=== PATIENT | male | born 1970 | race Hispanic/Latino ===

== ENCOUNTER 2021-09-24 23:11 | Inpatient (IN) | payer OTHER ==
[~2021-09-24] VITALS: Ht 175.3 cm; Wt 93.3 kg
[2021-09-25] MEDS ORDERED: ACETAMINOPHEN 325 MG TAB PO PRN ×2 (00:45→08:30)
[2021-09-25 00:53] LABS: BASOPHILS % 0.4 % (0.0-1.0); EOSINOPHILS # (AUTO) 0.1 (0.0-0.4); EOSINOPHILS % 1.3 % (0.0-6.0); HEMATOCRIT 40.3 % (38.2-49.6); HEMOGLOBIN 14.5 g/dL (14.0-18.0); LYMPHOCYTES # (AUTO) 1.6 (1.0-3.2); LYMPHOCYTES % 15.5 % (18.0-39.1); MEAN CORPUSCULAR HEMOGLOBIN 31.9 pg (28-32); MEAN CORPUSCULAR VOLUME 88.6 fL (81-99); MONOCYTES # (AUTO) 0.7 (0.2-0.8); MONOCYTES % 6.5 % (4.4-11.3); NEUTROPHILS # (AUTO) 7.7 (2.1-6.9); NEUTROPHILS % 76.1 % (38.7-80.0); PLATELET COUNT 256 x10e3/uL (140-360); RED BLOOD COUNT 4.55 x10e6/uL (4.3-5.7); RED CELL DISTRIBUTION WIDTH 11.8 % (11.7-14.4)
[2021-09-25 01:02] LABS: INR 1.07; PROTHROMBIN TIME 14.9 seconds (11.9-14.5)
[2021-09-25 01:03] LABS: PARTIAL THROMBOPLASTIN TIME 29.7 seconds (23.8-35.5)
[2021-09-25 01:10] LABS: ALBUMIN 3.1 g/dL (3.5-5.0); ALBUMIN/GLOBULIN RATIO 0.7 (0.8-2.0); ANION GAP 14.9 mmol/L (8-16); CALCIUM 8.8 mg/dL (8.4-10.2); CREATININE, SERUM 1.01 mg/dL (0.72-1.25); POTASSIUM 3.9 mmol/L (3.5-5.1)
[2021-09-25] MEDS: Vancomycin IV 1 GM in SODIUM CHLORIDE 0.9% 250ML 250 ML IV SCH ×2 (02:04→12:30)
[2021-09-25] MEDS ORDERED: DEXTROSE 50% SYRINGE 50 ML IV PRN ×2 (02:30→08:30)
[2021-09-25] MEDS: SODIUM CHLORIDE 0.9% 1000ML 1,000 ML IV SCH ×3 (06:05→18:17)
[2021-09-25] MEDS ORDERED: HYDRALAZINE HCL 20 MG/ML VIAL IV PRN (08:30)
[2021-09-25] MEDS: DOCUSATE SODIUM 100 MG CAP PO SCH (09:00)
[2021-09-25] MEDS: SENNOSIDES 8.6 MG TAB PO SCH (09:00)
[2021-09-25 10:49] LABS: CLARITY,URINE CLEAR (CLEAR); COLOR,URINE YELLOW (YELLOW)
[2021-09-25 10:50] LABS: BACTERIA,URINE RARE /HPF; KETONES,URINE 1+ (NEGATIVE); LEUKOCYTE ESTERASE ,URINE NEGATIVE (NEGATIVE); NITRITE,URINE NEGATIVE (NEGATIVE); PROTEIN,URINE DIPSTICK NEGATIVE (NEGATIVE); RBC,URINE 0-5 /HPF (0-5); URINE UROBILINOGEN 1 mg/dL (0.2 - 1); WBC,URINE (MAN) 0-5 /HPF (0-5)
[2021-09-25 10:51] LABS: EPITHELIAL CELLS,URINE RARE /LPF
[2021-09-25] MEDS: ONDANSETRON HCL INJ 2MG/ML 2ML 2 MG/ML VIAL IV PRN ×2 (11:35→16:37)
[2021-09-25] MEDS: Morphine 4mg INJECTION 4 MG/ML INJ IV PRN ×3 (11:35→20:46)
[2021-09-25] MEDS: INSULIN LISPRO 100 UNIT/1 ML 3ML VIAL SQ SCH ×3 (11:35→20:50)
[2021-09-25 15:30] VITALS: BP 142/90
[2021-09-25 16:25] VITALS: BP 142/90
[2021-09-25] MEDS ORDERED: METFORMIN500 MG/5 M (17:07)
[2021-09-25] MEDS ORDERED: LISINOPRIL5 MG PO (17:07)
[2021-09-25] MEDS: ENOXAPARIN SOD INJ 40 MG/0.4 ML SYR SC SCH (17:43)
[2021-09-25 18:32] VITALS: BP 142/90
[2021-09-25 19:30] VITALS: BP 129/80
[2021-09-25 20:00] VITALS: BP 129/80
[2021-09-26] VITALS (8 sets, daily range): BP systolic 120–146; BP diastolic 67–95
[2021-09-26] MEDS: Vancomycin IV 1 GM in SODIUM CHLORIDE 0.9% 250ML 250 ML IV SCH ×2 (00:30→11:29)
[2021-09-26] MEDS: Morphine 4mg INJECTION 4 MG/ML INJ IV PRN ×5 (00:30→23:41)
[2021-09-26] MEDS: SODIUM CHLORIDE 0.9% 1000ML 1,000 ML IV SCH ×3 (00:30→18:44)
[2021-09-26 06:02] LABS: BASOPHILS % 0.4 % (0.0-1.0); EOSINOPHILS # (AUTO) 0.3 (0.0-0.4); EOSINOPHILS % 2.5 % (0.0-6.0); HEMATOCRIT 34.6 % (38.2-49.6); HEMOGLOBIN 12.3 g/dL (14.0-18.0); LYMPHOCYTES # (AUTO) 2.3 (1.0-3.2); LYMPHOCYTES % 22.2 % (18.0-39.1); MEAN CORPUSCULAR HEMOGLOBIN 31.8 pg (28-32); MEAN CORPUSCULAR HGB CONC 35.5 g/dL (31-35); MEAN CORPUSCULAR VOLUME 89.4 fL (81-99); MONOCYTES # (AUTO) 0.7 (0.2-0.8); MONOCYTES % 6.6 % (4.4-11.3); NEUTROPHILS % 67.8 % (38.7-80.0); PLATELET COUNT 228 x10e3/uL (140-360); RED BLOOD COUNT 3.87 x10e6/uL (4.3-5.7); RED CELL DISTRIBUTION WIDTH 11.7 % (11.7-14.4)
[2021-09-26 06:35] LABS: ANION GAP 12.8 mmol/L (8-16); CREATININE, SERUM 0.84 mg/dL (0.72-1.25); POTASSIUM 3.8 mmol/L (3.5-5.1)
[2021-09-26] MEDS: INSULIN LISPRO 100 UNIT/1 ML 3ML VIAL SQ SCH ×4 (07:30→21:41)
[2021-09-26] MEDS: DOCUSATE SODIUM 100 MG CAP PO SCH (09:24)
[2021-09-26] MEDS: SENNOSIDES 8.6 MG TAB PO SCH (09:24)
[2021-09-26] MEDS: ONDANSETRON HCL INJ 2MG/ML 2ML 2 MG/ML VIAL IV PRN ×2 (09:24→15:00)
[2021-09-26] MEDS ORDERED: DEXTROSE 50% SYRINGE 50 ML IV PRN ×2 (16:45)
[2021-09-26] MEDS: ENOXAPARIN SOD INJ 40 MG/0.4 ML SYR SC SCH (18:44)
[2021-09-26] MEDS ORDERED: INSULIN REGULAR, HUMAN 100 UNIT/1 ML SQ SCH (21:00)
[2021-09-27] VITALS (7 sets, daily range): BP systolic 117–162; BP diastolic 77–98
[2021-09-27] MEDS: Vancomycin IV 1 GM in SODIUM CHLORIDE 0.9% 250ML 250 ML IV SCH ×2 (00:25→13:21)
[2021-09-27] MEDS: SODIUM CHLORIDE 0.9% 1000ML 1,000 ML IV SCH ×3 (02:11→18:05)
[2021-09-27] MEDS: Morphine 4mg INJECTION 4 MG/ML INJ IV PRN ×3 (09:43→21:24)
[2021-09-27] MEDS: DOCUSATE SODIUM 100 MG CAP PO SCH (09:44)
[2021-09-27] MEDS: SENNOSIDES 8.6 MG TAB PO SCH (09:44)
[2021-09-27] MEDS: INSULIN LISPRO 100 UNIT/1 ML 3ML VIAL SQ SCH ×4 (09:49→21:00)
[2021-09-27] MEDS: ENOXAPARIN SOD INJ 40 MG/0.4 ML SYR SC SCH (18:01)
[2021-09-28] VITALS (7 sets, daily range): BP systolic 126–164; BP diastolic 80–101
[2021-09-28] MEDS ORDERED: SODIUM CHLORIDE 0.9% 250ML 250 ML ONE (01:31)
[2021-09-28] MEDS ORDERED: Vancomycin IV 1.5 GM in SODIUM CHLORIDE 0.9% 500ML 500 ML IV SCH (02:00)
[2021-09-28] MEDS: SODIUM CHLORIDE 0.9% 1000ML 1,000 ML IV SCH ×3 (04:07→17:29)
[2021-09-28] MEDS: Morphine 4mg INJECTION 4 MG/ML INJ IV PRN ×4 (07:46→23:12)
[2021-09-28] MEDS ORDERED: HYDRALAZINE HCL 20 MG/ML VIAL IV PRN (08:15)
[2021-09-28 08:56] LABS: BASOPHILS % 0.4 % (0.0-1.0); EOSINOPHILS # (AUTO) 0.2 (0.0-0.4); EOSINOPHILS % 2.2 % (0.0-6.0); HEMATOCRIT 36.6 % (38.2-49.6); HEMOGLOBIN 13.1 g/dL (14.0-18.0); LYMPHOCYTES # (AUTO) 1.5 (1.0-3.2); LYMPHOCYTES % 19.6 % (18.0-39.1); MEAN CORPUSCULAR HEMOGLOBIN 31.6 pg (28-32); MEAN CORPUSCULAR HGB CONC 35.8 g/dL (31-35); MEAN CORPUSCULAR VOLUME 88.4 fL (81-99); MONOCYTES # (AUTO) 0.5 (0.2-0.8); MONOCYTES % 6.4 % (4.4-11.3); NEUTROPHILS # (AUTO) 5.4 (2.1-6.9); NEUTROPHILS % 71.1 % (38.7-80.0); PLATELET COUNT 251 x10e3/uL (140-360); RED BLOOD COUNT 4.14 x10e6/uL (4.3-5.7); RED CELL DISTRIBUTION WIDTH 11.6 % (11.7-14.4)
[2021-09-28] MEDS: SENNOSIDES 8.6 MG TAB PO SCH ×2 (09:00→09:30)
[2021-09-28] MEDS: DOCUSATE SODIUM 100 MG CAP PO SCH ×2 (09:00→09:31)
[2021-09-28 09:05] LABS: ALBUMIN 2.7 g/dL (3.5-5.0); ALBUMIN/GLOBULIN RATIO 0.9 (0.8-2.0); ANION GAP 14.9 mmol/L (8-16); CALCIUM 7.5 mg/dL (8.4-10.2); CREATININE, SERUM 0.79 mg/dL (0.72-1.25); POTASSIUM 3.9 mmol/L (3.5-5.1)
[2021-09-28] MEDS: LISINOPRIL 2.5 MG TAB PO SCH (09:29)
[2021-09-28] MEDS: INSULIN LISPRO 100 UNIT/1 ML 3ML VIAL SQ SCH ×5 (09:40→21:00)
[2021-09-28] MEDS ORDERED: LIDOCAINE HCL 1% LOCAL INJ 20 ML VIAL INJ ONE (10:30)
[2021-09-28] MEDS ORDERED: BUPIVACAINE HCL 0.5% INJ 30 ML VIAL INJ ONE (10:45)
[2021-09-28] MEDS ORDERED: BETAMETHASONE DISODIUM PHOS 6 MG/ML VIAL IM ONE (11:30)
[2021-09-28] MEDS ORDERED: INSULIN LISPRO 100 UNIT/1 ML 3ML VIAL SQ SCH (11:30)
[2021-09-28] MEDS: VANCOMYCIN IV SCH (14:00)
[2021-09-28] MEDS: SODIUM CHLORIDE 0.9% IV SCH (14:00)
[2021-09-28] MEDS: ENOXAPARIN SOD INJ 40 MG/0.4 ML SYR SC SCH (16:43)
[2021-09-28] MEDS: METFORMIN HCL 500 MG TAB CR PO SCH (16:43)
[2021-09-28] MEDS ORDERED: DIPHENHYDRAMINE HCL 25 MG CAP PO ONE (17:00)
[2021-09-28] MEDS ORDERED: INSULIN GLARGINE 100 UNITS/ML VIAL SQ SCH ×2 (21:00)
[2021-09-28] MEDS: ATORVASTATIN 10 MG TAB PO SCH (21:14)
[2021-09-28] MEDS: ONDANSETRON HCL INJ 2MG/ML 2ML 2 MG/ML VIAL IV PRN (23:12)
[2021-09-29] VITALS (7 sets, daily range): BP systolic 123–157; BP diastolic 82–100
[2021-09-29] MEDS: SODIUM CHLORIDE 0.9% IV SCH ×2 (01:41→14:54)
[2021-09-29] MEDS: SODIUM CHLORIDE 0.9% 1000ML 1,000 ML IV SCH ×3 (01:41→19:15)
[2021-09-29] MEDS: VANCOMYCIN IV SCH ×2 (01:41→14:54)
[2021-09-29 05:51] LABS: BASOPHILS % 0.4 % (0.0-1.0); EOSINOPHILS # (AUTO) 0.3 (0.0-0.4); EOSINOPHILS % 3.1 % (0.0-6.0); HEMOGLOBIN 13.1 g/dL (14.0-18.0); LYMPHOCYTES # (AUTO) 1.9 (1.0-3.2); LYMPHOCYTES % 21.2 % (18.0-39.1); MEAN CORPUSCULAR HEMOGLOBIN 31.6 pg (28-32); MEAN CORPUSCULAR HGB CONC 35.4 g/dL (31-35); MEAN CORPUSCULAR VOLUME 89.2 fL (81-99); MONOCYTES # (AUTO) 0.7 (0.2-0.8); MONOCYTES % 7.5 % (4.4-11.3); NEUTROPHILS # (AUTO) 6.2 (2.1-6.9); NEUTROPHILS % 67.5 % (38.7-80.0); PLATELET COUNT 294 x10e3/uL (140-360); RED BLOOD COUNT 4.15 x10e6/uL (4.3-5.7); RED CELL DISTRIBUTION WIDTH 11.7 % (11.7-14.4)
[2021-09-29 06:27] LABS: ALBUMIN 2.5 g/dL (3.5-5.0); ALBUMIN/GLOBULIN RATIO 0.7 (0.8-2.0); ANION GAP 13.6 mmol/L (8-16); CREATININE, SERUM 0.9 mg/dL (0.72-1.25); MAGNESIUM 1.7 MG/DL (1.3-2.1); POTASSIUM 3.6 mmol/L (3.5-5.1)
[2021-09-29] MEDS: INSULIN LISPRO 100 UNIT/1 ML 3ML VIAL SQ SCH ×9 (07:30→21:29)
[2021-09-29] MEDS ORDERED: BACITRACIN ZINC 15 GM OINT ONE (07:40)
[2021-09-29] MEDS ORDERED: DEXAMETHASONE SOD PHOS INJ 4 MG/ML SDV ONE ×2 (07:40→07:55)
[2021-09-29] MEDS ORDERED: BUPIVACAINE 0.25% 30ML SDV ONE (07:41)
[2021-09-29] MEDS ORDERED: LIDOCAINE HCL 2% LOCAL 20 ML VIAL ONE (07:43)
[2021-09-29] MEDS ORDERED: BETAMETHASONE DISODIUM PHOS 6 MG/ML VIAL ONE (07:44)
[2021-09-29] MEDS ORDERED: POVIDONE IODINE 0.05% 0.05 % ML PO ONE (07:55)
[2021-09-29] MEDS ORDERED: LIDOCAINE HCL 2% LOCAL INJ 5 ML SDV VIAL INJ ONE (07:55)
[2021-09-29] MEDS ORDERED: SEVOFLURANE INHAL SOLN 250 ML PEN BTL ONE (07:55)
[2021-09-29] MEDS ORDERED: EPHEDRINE SULFATE INJ 50 MG/ML VIAL ONE (07:55)
[2021-09-29] MEDS ORDERED: PROPOFOL IV EMULSION 10 MG/ML 20 ML VIAL ONE (07:55)
[2021-09-29] MEDS ORDERED: ONDANSETRON HCL INJ 2MG/ML 2ML 2 MG/ML VIAL ONE (07:55)
[2021-09-29] MEDS ORDERED: Vancomycin IV 1 GM VIAL ONE (07:57)
[2021-09-29] MEDS: METFORMIN HCL 500 MG TAB CR PO SCH ×3 (08:00→16:28)
[2021-09-29] MEDS: SENNOSIDES 8.6 MG TAB PO SCH (09:27)
[2021-09-29] MEDS: DOCUSATE SODIUM 100 MG CAP PO SCH (09:27)
[2021-09-29] MEDS: LISINOPRIL 2.5 MG TAB PO SCH (09:28)
[2021-09-29] MEDS ORDERED: MIDAZOLAM HCL 2 MG/2 ML VIAL ONE (09:58)
[2021-09-29] MEDS ORDERED: FENTANYL CITRATE/PF 100MCG/2 ML INJ ONE (09:58)
[2021-09-29] MEDS: Morphine 4mg INJECTION 4 MG/ML INJ IV PRN ×3 (10:55→21:39)
[2021-09-29] MEDS: ONDANSETRON HCL INJ 2MG/ML 2ML 2 MG/ML VIAL IV PRN ×2 (10:55→16:35)
[2021-09-29] MEDS: ENOXAPARIN SOD INJ 40 MG/0.4 ML SYR SC SCH (16:29)
[2021-09-29] MEDS: ATORVASTATIN 10 MG TAB PO SCH (20:17)
[2021-09-29] MEDS ORDERED: INSULIN GLARGINE 100 UNITS/ML VIAL SQ SCH (21:00)
[2021-09-29] MEDS: INSULIN GLARGINE 100 UNITS/ML VIAL SQ SCH (21:30)
[2021-09-30] VITALS (9 sets, daily range): BP systolic 99–150; BP diastolic 59–97
[2021-09-30] MEDS: VANCOMYCIN IV SCH ×2 (02:28→14:34)
[2021-09-30] MEDS: SODIUM CHLORIDE 0.9% IV SCH ×2 (02:28→14:34)
[2021-09-30] MEDS: SODIUM CHLORIDE 0.9% 1000ML 1,000 ML IV SCH ×3 (05:25→20:13)
[2021-09-30] MEDS: Morphine 4mg INJECTION 4 MG/ML INJ IV PRN ×3 (06:49→22:22)
[2021-09-30] MEDS: SENNOSIDES 8.6 MG TAB PO SCH (09:18)
[2021-09-30] MEDS: LISINOPRIL 2.5 MG TAB PO SCH (09:18)
[2021-09-30] MEDS: DOCUSATE SODIUM 100 MG CAP PO SCH (09:19)
[2021-09-30] MEDS: METFORMIN HCL 500 MG TAB CR PO SCH ×2 (09:19→16:07)
[2021-09-30] MEDS: INSULIN LISPRO 100 UNIT/1 ML 3ML VIAL SQ SCH ×5 (09:31→16:08)
[2021-09-30] MEDS ORDERED: LEVEMIR FL100 UNIT/1 SC (12:15)
[2021-09-30] MEDS ORDERED: BLOOD GLUCOSE1 EAC1 MC (12:15)
[2021-09-30] MEDS ORDERED: LANCETS1 EACH MC (12:15)
[2021-09-30] MEDS ORDERED: HUMALOG100 UNIT/3 SC (12:15)
[2021-09-30] MEDS: COLLAGENASE 5 GM TUBE TOP SCH (12:42)
[2021-09-30] MEDS ORDERED: LIDOCAINE HCL 1% LOCAL INJ 20 ML VIAL INJ ONE (13:00)
[2021-09-30] MEDS ORDERED: BUPIVACAINE HCL 0.25% 10ML MPF VIAL INJ ONE (13:00)
[2021-09-30] MEDS ORDERED: BETAMETHASONE DIP AUG 0.05% CRM 15 GM TUBE TOP SCH (13:00)
[2021-09-30 13:29] LABS: BASOPHILS % 0.3 % (0.0-1.0); EOSINOPHILS # (AUTO) 0.2 (0.0-0.4); EOSINOPHILS % 1.7 % (0.0-6.0); HEMATOCRIT 37.4 % (38.2-49.6); HEMOGLOBIN 12.7 g/dL (14.0-18.0); LYMPHOCYTES # (AUTO) 2.2 (1.0-3.2); LYMPHOCYTES % 21.1 % (18.0-39.1); MEAN CORPUSCULAR HEMOGLOBIN 31.3 pg (28-32); MEAN CORPUSCULAR VOLUME 92.1 fL (81-99); MONOCYTES # (AUTO) 0.7 (0.2-0.8); MONOCYTES % 6.4 % (4.4-11.3); NEUTROPHILS # (AUTO) 7.4 (2.1-6.9); NEUTROPHILS % 69.4 % (38.7-80.0); PLATELET COUNT 334 x10e3/uL (140-360); RED BLOOD COUNT 4.06 x10e6/uL (4.3-5.7); RED CELL DISTRIBUTION WIDTH 13.2 % (11.7-14.4)
[2021-09-30] MEDS: ENOXAPARIN SOD INJ 40 MG/0.4 ML SYR SC SCH (16:07)
[2021-09-30] MEDS: ONDANSETRON HCL INJ 2MG/ML 2ML 2 MG/ML VIAL IV PRN ×2 (16:07→22:22)
[2021-09-30] MEDS: ATORVASTATIN 10 MG TAB PO SCH (20:14)
[2021-09-30] MEDS: INSULIN GLARGINE 100 UNITS/ML VIAL SQ SCH (20:21)
[2021-10-01 00:24] VITALS: BP 147/92
[2021-10-01] MEDS: VANCOMYCIN IV SCH (01:39)
[2021-10-01] MEDS: SODIUM CHLORIDE 0.9% IV SCH (01:39)
[2021-10-01] MEDS: SODIUM CHLORIDE 0.9% 1000ML 1,000 ML IV SCH (03:56)
[2021-10-01] MEDS: ONDANSETRON HCL INJ 2MG/ML 2ML 2 MG/ML VIAL IV PRN (04:29)
[2021-10-01] MEDS: Morphine 4mg INJECTION 4 MG/ML INJ IV PRN (04:29)
[2021-10-01 05:29] VITALS: BP 135/92
[2021-10-01 06:07] LABS: BASOPHILS % 0.4 % (0.0-1.0); EOSINOPHILS # (AUTO) 0.1 (0.0-0.4); EOSINOPHILS % 1.7 % (0.0-6.0); HEMATOCRIT 35.2 % (38.2-49.6); HEMOGLOBIN 12.7 g/dL (14.0-18.0); LYMPHOCYTES % 25.7 % (18.0-39.1); MEAN CORPUSCULAR HEMOGLOBIN 31.2 pg (28-32); MEAN CORPUSCULAR HGB CONC 36.1 g/dL (31-35); MEAN CORPUSCULAR VOLUME 86.5 fL (81-99); MONOCYTES # (AUTO) 0.4 (0.2-0.8); MONOCYTES % 4.6 % (4.4-11.3); NEUTROPHILS # (AUTO) 5.1 (2.1-6.9); NEUTROPHILS % 67.2 % (38.7-80.0); PLATELET COUNT 304 x10e3/uL (140-360); RED BLOOD COUNT 4.07 x10e6/uL (4.3-5.7); RED CELL DISTRIBUTION WIDTH 11.9 % (11.7-14.4)
[2021-10-01] MEDS ORDERED: LIDOCAINE HCL 1% LOCAL INJ 20 ML VIAL INJ ONE (07:30)
[2021-10-01] MEDS ORDERED: BUPIVACAINE 0.25% 30ML SDV INJ ONE (07:30)
[2021-10-01 07:49] VITALS: BP 149/97
[2021-10-01] MEDS: SENNOSIDES 8.6 MG TAB PO SCH (08:48)
[2021-10-01] MEDS: DOCUSATE SODIUM 100 MG CAP PO SCH (08:48)
[2021-10-01] MEDS: LISINOPRIL 2.5 MG TAB PO SCH (08:48)
[2021-10-01] MEDS: COLLAGENASE 5 GM TUBE TOP SCH (08:48)
[2021-10-01] MEDS: METFORMIN HCL 500 MG TAB CR PO SCH (08:48)
[2021-10-01] MEDS: INSULIN LISPRO 100 UNIT/1 ML 3ML VIAL SQ SCH ×2 (08:58→11:30)
[2021-10-01] MEDS ORDERED: LIDOCAINE HCL 1% 2 ML AMP INJ ONE (09:00)
[2021-10-01] MEDS ORDERED: BUPIVACAINE HCL 0.25% 10ML MPF VIAL INJ ONE (09:00)
[2021-10-01] MEDS ORDERED: BETAMETHASONE DISODIUM PHOS 6 MG/ML VIAL IM ONE (09:00)
[2021-10-01] MEDS ORDERED: METFORMIN HCL500 M2 PO (10:13)
[2021-10-01] MEDS ORDERED: LISINOPRIL5 MG PO (10:13)
[2021-10-01] MEDS ORDERED: JARDIANCE25 MG PO (10:13)
[2021-10-01] MEDS ORDERED: DAPTOMYCIN 500mg 10ML 500 MG in SODIUM CHLORIDE 0.9% 100 ML IV SCH (11:00)
[2021-10-01] MEDS ORDERED: ATORVASTATIN CA10 MG PO (11:26)
[2021-10-01 11:46] VITALS: BP 152/98
[2021-10-02] MEDS ORDERED: COLLAGENASE 5 GM TUBE TOP SCH (09:00)
== END 2021-10-01 13:50 | disposition home or self-care (01) | DRG 623 ==
LOC: ER 23:21 → ERHOLD 09-25 02:31 → MED/SURG2 09-25 15:10
PROVIDERS: ADMIT Internal Medicine; ATTEND Internal Medicine
PROC: 0K9V0ZZ Drainage of Right Foot Muscle, Open Approach (ICD-10-PCS; 2021-09-29)
PROC: 02HV33Z Insertion of Infusion Device into Superior Vena Cava, Percutaneous Approach (ICD-10-PCS; 2021-09-29)
PROC: 0QBQ0ZZ Excision of Right Toe Phalanx, Open Approach (ICD-10-PCS; principal; 2021-09-29 07:33)
PROC: 0JBQ0ZZ Excision of Right Foot Subcutaneous Tissue and Fascia, Open Approach (ICD-10-PCS; 2021-10-01)
DX: E11.628 Type 2 diabetes mellitus with other skin complications (principal); L02.611 Cutaneous abscess of right foot; L03.115 Cellulitis of right lower limb; L97.515 Non-pressure chronic ulcer of other part of right foot with muscle involvement without evidence of necrosis; M86.171 Other acute osteomyelitis, right ankle and foot; S91.341A Puncture wound with foreign body, right foot, initial encounter; E11.42 Type 2 diabetes mellitus with diabetic polyneuropathy; E11.621 Type 2 diabetes mellitus with foot ulcer; E11.69 Type 2 diabetes mellitus with other specified complication; E11.65 Type 2 diabetes mellitus with hyperglycemia; B95.1 Streptococcus, group B, as the cause of diseases classified elsewhere; E78.5 Hyperlipidemia, unspecified; I10 Essential (primary) hypertension; E66.9 Obesity, unspecified; Z68.30 Body mass index [BMI] 30.0-30.9, adult; W45.8XXA Other foreign body or object entering through skin, initial encounter; Y93.89 Activity, other specified; Y92.832 Beach as the place of occurrence of the external cause; Z91.14 Patient's other noncompliance with medication regimen; B95.61 Methicillin susceptible Staphylococcus aureus infection as the cause of diseases classified elsewhere; B95.2 Enterococcus as the cause of diseases classified elsewhere; Z79.4 Long term (current) use of insulin; Z79.84 Long term (current) use of oral hypoglycemic drugs; Z20.822 Contact with and (suspected) exposure to COVID-19; W25.XXXA Contact with sharp glass, initial encounter; Z72.0 Tobacco use
CPT/HCPCS: 36415; 36569; 71045; 80048; 80053; 80202; 81001; 82948; 83036; 83605; 83735; 84443; 85025; 85610; 85651; 85730; 86140; 87040; 87071; 87075; 87086; 87186; 87205; 93005; 93925; 96372; 99251; 99284; J0360; J0720; J1100; J1650; J1815; J2001; J2250; J2270; J2405; J2543; J3010; J3370; J7030; J7040; J7050

== ENCOUNTER 2022-08-20 12:51 | Emergency (ER) | payer OTHER ==
[~2022-08-20] VITALS: Ht 175.3 cm; Wt 93.0 kg
[~2022-08-20 12:51] MED LIST: ATORVASTATIN CA10 MG PO; BLOOD GLUCOSE1 EAC1 MC; HUMALOG100 UNIT/3 SC; JARDIANCE25 MG PO; LANCETS1 EACH MC; LEVEMIR FL100 UNIT/1 SC; LISINOPRIL5 MG PO; METFORMIN HCL500 M2 PO; METFORMIN500 MG/5 M
[2022-08-20] MEDS ORDERED: SODIUM CHLORIDE 0.9% 1000ML 1,000 ML IV ONE ×2 (13:15→14:15)
[2022-08-20] MEDS ORDERED: ASPIRIN 325 MG TAB PO ONE (13:15)
[2022-08-20] MEDS ORDERED: ONDANSETRON HCL INJ 2MG/ML 2ML 2 MG/ML VIAL IV PRN (13:15)
[2022-08-20] MEDS ORDERED: ONDANSETRON HCL INJ 2MG/ML 2ML 2 MG/ML VIAL ONE (13:16)
[2022-08-20] MEDS ORDERED: SODIUM CHLORIDE 0.9% 1000ML 1,000 ML ONE (13:16)
[2022-08-20 13:24] LABS: BASOPHILS % 0.3 % (0.0-1.0); EOSINOPHILS # (AUTO) 0.1 (0.0-0.4); EOSINOPHILS % 0.9 % (0.0-6.0); HEMATOCRIT 50.5 % (38.2-49.6); HEMOGLOBIN 18.5 g/dL (14.0-18.0); LYMPHOCYTES # (AUTO) 0.3 (1.0-3.2); LYMPHOCYTES % 4.8 % (18.0-39.1); MEAN CORPUSCULAR HEMOGLOBIN 31.6 pg (28-32); MEAN CORPUSCULAR HGB CONC 36.6 g/dL (31-35); MEAN CORPUSCULAR VOLUME 86.2 fL (81-99); MONOCYTES # (AUTO) 0.5 (0.2-0.8); MONOCYTES % 6.7 % (4.4-11.3); PLATELET COUNT 179 x10e3/uL (140-360); RED BLOOD COUNT 5.86 x10e6/uL (4.3-5.7); RED CELL DISTRIBUTION WIDTH 12.4 % (11.7-14.4)
[2022-08-20 14:01] LABS: ALANINE AMINOTRANSFERASE 15 IU/L (0-55); ALBUMIN 3.7 g/dL (3.5-5.0); ALKALINE PHOSPHATASE 112 IU/L (40-150); ANION GAP 14.5 mmol/L (8-16); BLOOD UREA NITROGEN 22 mg/dL (7-26); BUN/CREATININE RATIO 16 (6-25); CALCIUM 8.7 mg/dL (8.4-10.2); CARBON DIOXIDE 23 mmol/L (22-29); CHLORIDE 98 mmol/L (98-107); CREATINE KINASE 83 IU/L (30-200); CREATININE, SERUM 1.35 mg/dL (0.72-1.25); GLUCOSE 328 mg/dL (74-118); POTASSIUM 3.5 mmol/L (3.5-5.1); SODIUM 132 mmol/L (136-145)
[2022-08-20] MEDS ORDERED: INSULIN REGULAR, HUMAN 100 UNIT/1 ML SQ ONE (14:15)
[2022-08-20] MEDS ORDERED: IOPAMIDOL 370 MG/ML 100 ML INFUS..BTL INJ ONE (14:19)
[2022-08-20 15:31] VITALS: O2SAT 99
[2022-08-20] MEDS ORDERED: ONDANSETRON ODT4 MG PO (15:37)
== END 2022-08-20 16:16 | disposition home or self-care (01) ==
LOC: ER 13:03
DX: R53.1 Weakness (principal); E86.0 Dehydration; R19.7 Diarrhea, unspecified; T67.5XXA Heat exhaustion, unspecified, initial encounter; E11.65 Type 2 diabetes mellitus with hyperglycemia; E78.5 Hyperlipidemia, unspecified; R94.31 Abnormal electrocardiogram [ECG] [EKG]
CPT/HCPCS: 36415; 71045; 71260; 80053; 82550; 82948; 84484; 85025; 85379; 93005; 99284; J2405; J7030; Q9967

== ENCOUNTER → 2023-03-22 | Day surgery (SDC) | payer OTHER ==
[2023-03-18 14:18] LABS: ANION GAP 11.7 mmol/L (8-16); CALCIUM 8.5 mg/dL (8.4-10.2); CREATININE, SERUM 0.94 mg/dL (0.72-1.25); POTASSIUM 3.7 mmol/L (3.5-5.1)
[~2023-03-22] MED LIST changes: +ACETAMINOPHEN 1000 MG/100 ML 100 ML IV ONE; +BUPROPION HCL150 M2 PO; +CIPROFLOXACIN500 MG PO; +COZAAR25 MG PO; +DEXAMETHASONE SOD PHOS 10 MG/1 ML VIAL ONE; +DEXAMETHASONE SOD PHOS INJ 4 MG/ML SDV ONE; +EPINEPHRINE 1 MG/ML 30ML VIAL ONE; +FENTANYL CITRATE/PF 100MCG/2 ML INJ ONE; +GLYCOPYRROLATE INJ 0.2 MG/ML VIAL ONE; +K-DUR10 MEQ PO; +LACTATED RINGER'S 1,000 ML ONE; +LEVEMIR100 UNIT/1 SQ; +LIDOCAINE HCL 2% LOCAL INJ 5 ML SDV VIAL INJ ONE; +MELOXICAM15 MG PO; +METOCLOPRAMIDE10 MG PO; +METRONIDAZOLE500 MG PO; +MIDAZOLAM HCL 2 MG/2 ML VIAL ONE; +NEOSTIGMINE 1 MG/ML 10ML VIAL ONE; +ONDANSETRON HCL INJ 2MG/ML 2ML 2 MG/ML VIAL ONE; +ONDANSETRON ODT4 MG PO; +PANTOPRAZOLE SO40 MG PO; +PROPOFOL IV EMULSION 10 MG/ML 20 ML VIAL ONE; +ROCURONIUM BROMIDE 10 MG/ML 5ML VIAL IV ONE; +ROPIVACAINE 0.5% 5 MG/ML 30 ML SDV ONE; +SEVOFLURANE INHAL SOLN 250 ML PEN BTL ONE; +SUCCINYLCHOLINE CHLORIDE 20 MG/ML 10ML VIAL ONE; +SUGAMMADEX SODIUM 200 MG/2 ML VIAL IV ONE; +TRESIBA FL100 UNIT/1
[2023-03-22 13:15] VITALS: BP 125/85; PULSE 90; RESP 17; O2SAT 98
== END | disposition home or self-care (01) ==
LOC: OR 10:01
PROVIDERS: ATTEND Specialist
DX: M75.101 Unspecified rotator cuff tear or rupture of right shoulder, not specified as traumatic (principal); M75.21 Bicipital tendinitis, right shoulder; G47.33 Obstructive sleep apnea (adult) (pediatric); E11.9 Type 2 diabetes mellitus without complications; I10 Essential (primary) hypertension; E78.5 Hyperlipidemia, unspecified; Z01.810 Encounter for preprocedural cardiovascular examination; Z01.812 Encounter for preprocedural laboratory examination; Z79.84 Long term (current) use of oral hypoglycemic drugs; Z79.4 Long term (current) use of insulin; Z79.899 Other long term (current) drug therapy
CPT/HCPCS: 29827; 36415 ×2; 80048; 82948; 93005; C1713; J0131; J0330; J0690; J1100 ×2; J2001; J2250; J2405; J2704; J2710; J2795; J3010; J7121

== ENCOUNTER 2023-06-06 08:52 | Outpatient (RCR) | payer OTHER ==
[~2023-06-06 08:52] MED LIST changes: -ACETAMINOPHEN 1000 MG/100 ML 100 ML IV ONE; -DEXAMETHASONE SOD PHOS 10 MG/1 ML VIAL ONE; -DEXAMETHASONE SOD PHOS INJ 4 MG/ML SDV ONE; -EPINEPHRINE 1 MG/ML 30ML VIAL ONE; -FENTANYL CITRATE/PF 100MCG/2 ML INJ ONE; -GLYCOPYRROLATE INJ 0.2 MG/ML VIAL ONE; -LACTATED RINGER'S 1,000 ML ONE; -LIDOCAINE HCL 2% LOCAL INJ 5 ML SDV VIAL INJ ONE; -MIDAZOLAM HCL 2 MG/2 ML VIAL ONE; -NEOSTIGMINE 1 MG/ML 10ML VIAL ONE; -ONDANSETRON HCL INJ 2MG/ML 2ML 2 MG/ML VIAL ONE; -PROPOFOL IV EMULSION 10 MG/ML 20 ML VIAL ONE; -ROCURONIUM BROMIDE 10 MG/ML 5ML VIAL IV ONE; -ROPIVACAINE 0.5% 5 MG/ML 30 ML SDV ONE; -SEVOFLURANE INHAL SOLN 250 ML PEN BTL ONE; -SUCCINYLCHOLINE CHLORIDE 20 MG/ML 10ML VIAL ONE; -SUGAMMADEX SODIUM 200 MG/2 ML VIAL IV ONE
== END 2023-07-05 ==
LOC: PT 08:52
PROVIDERS: ATTEND Physician Assistant
DX: Z47.89 Encounter for other orthopedic aftercare (principal); M75.121 Complete rotator cuff tear or rupture of right shoulder, not specified as traumatic

== ENCOUNTER 2023-08-31 10:00 | Outpatient (RCR) | payer OTHER | END 2023-09-04 | LOC: PT 10:00 | PROVIDERS: ATTEND Physician Assistant | DX: Z47.89 Encounter for other orthopedic aftercare (principal); M75.121 Complete rotator cuff tear or rupture of right shoulder, not specified as traumatic ==

== ENCOUNTER 2023-09-07 10:00 | Outpatient (RCR) | payer OTHER | END 2023-10-05 | LOC: PT 10:00 | PROVIDERS: ATTEND Physician Assistant | DX: Z47.89 Encounter for other orthopedic aftercare (principal); M75.121 Complete rotator cuff tear or rupture of right shoulder, not specified as traumatic ==

== ENCOUNTER 2024-01-22 19:42 | Inpatient (IN) | payer OTHER ==
[~2024-01-22] VITALS: Ht 175.3 cm; Wt 91.4 kg
[2024-01-22 19:42] VITALS: TEMP 98.9
[~2024-01-22 19:42] MED LIST changes: -TRESIBA FL100 UNIT/1; +TRESIBA FL100 UNIT/1 SQ
[2024-01-22 20:01] LABS: BASOPHILS # (AUTO) 0.1 (0.0-0.1); BASOPHILS % 0.8 % (0.0-1.0); EOSINOPHILS # (AUTO) 0.1 (0.0-0.4); EOSINOPHILS % 1.7 % (0.0-6.0); HEMATOCRIT 44.6 % (38.2-49.6); HEMOGLOBIN 15.8 g/dL (14.0-18.0); LYMPHOCYTES # (AUTO) 2.3 (1.0-3.2); LYMPHOCYTES % 38.3 % (18.0-39.1); MEAN CORPUSCULAR HEMOGLOBIN 32.1 pg (28-32); MEAN CORPUSCULAR HGB CONC 35.4 g/dL (31-35); MEAN CORPUSCULAR VOLUME 90.7 fL (81-99); MONOCYTES # (AUTO) 0.5 (0.2-0.8); NEUTROPHILS % 50.9 % (38.7-80.0); PLATELET COUNT 203 x10e3/uL (140-360); RED BLOOD COUNT 4.92 x10e6/uL (4.3-5.7); RED CELL DISTRIBUTION WIDTH 12.2 % (11.7-14.4)
[2024-01-22 20:19] LABS: ALBUMIN/GLOBULIN RATIO 1.4 (0.8-2.0); ANION GAP 17.6 mmol/L (8-16); BILIRUBIN,TOTAL 0.6 mg/dL (0.2-1.2); CALCIUM 8.8 mg/dL (8.4-10.2); CREATININE, SERUM 1.03 mg/dL (0.72-1.25); POTASSIUM 3.6 mmol/L (3.5-5.1); TOTAL PROTEIN 6.8 g/dL (6.5-8.1)
[2024-01-22 20:25] LABS: TROPONIN I 0.008 ng/mL (0-0.300)
[2024-01-22 21:15] VITALS: PULSE 101; RESP 20; O2SAT 97
[2024-01-22] MEDS ORDERED: DEXTROSE 50% SYRINGE 50 ML IV PRN (21:15)
[2024-01-22 22:00] VITALS: BP 144/96; PULSE 97; RESP 18; TEMP 98.1; O2SAT 99
[2024-01-22 22:30] VITALS: BP 144/96; PULSE 97; RESP 20; TEMP 98.1; O2SAT 99
[2024-01-22] MEDS: Morphine 4mg INJECTION 4 MG/ML INJ IV PRN (22:48)
[2024-01-22] MEDS: ONDANSETRON HCL INJ 2MG/ML 2ML 2 MG/ML VIAL IV PRN (22:48)
[2024-01-23] VITALS (9 sets, daily range): BP systolic 141–168; BP diastolic 95–105; PULSE 84–97; RESP 17–21; TEMP 97.7–98.1; O2SAT 98–100
[2024-01-23] MEDS ORDERED: PLAVIX75 MG PO (01:49)
[2024-01-23] MEDS: INSULIN REGULAR, HUMAN 100 UNIT/1 ML SQ SCH (08:36)
[2024-01-23] MEDS: ASPIRIN 325 MG TAB EC PO SCH (08:37)
[2024-01-23] MEDS: CLOPIDOGREL BISULFATE 75 MG TAB PO SCH (08:37)
[2024-01-23 08:43] LABS: CHOL/HDL RATIO 4.1 (3.9-4.7)
[2024-01-23 08:56] LABS: TROPONIN I 0.006 ng/mL (0-0.300)
[2024-01-23] MEDS ORDERED: POTASSIUM CHLORIDE 20 MEQ TAB CR PO PRN (12:45)
[2024-01-23] MEDS ORDERED: ALBUTEROL/IPRATROPIUM 3 ML NEB NEB PRN (12:45)
[2024-01-23] MEDS ORDERED: SIMETHICONE 80 MG CHEW PO PRN (12:45)
[2024-01-23] MEDS ORDERED: BENZONATATE 100 MG CAP PO PRN (12:45)
[2024-01-23] MEDS ORDERED: LIDOCAINE 4% PATCH TP PRN (12:45)
[2024-01-23] MEDS ORDERED: DOCUSATE SODIUM 100 MG CAP PO PRN (12:45)
[2024-01-23] MEDS ORDERED: HYDRALAZINE HCL 20 MG/ML VIAL IV PRN (12:45)
[2024-01-23] MEDS ORDERED: DEXTROSE 50% SYRINGE 50 ML IV PRN (12:45)
[2024-01-23] MEDS ORDERED: DIPHENHYDRAMINE HCL 25 MG CAP PO PRN (12:45)
[2024-01-23 16:46] LABS: TROPONIN I 0.004 ng/mL (0-0.300)
[2024-01-23] MEDS: CARVEDILOL 12.5 MG TAB PO SCH (17:11)
[2024-01-23] MEDS: ENOXAPARIN SOD INJ 40 MG/0.4 ML SYR SC SCH (17:12)
[2024-01-23] MEDS: SODIUM CHLORIDE 0.9% 1000ML 1,000 ML IV SCH (17:12)
[2024-01-23] MEDS: MELATONIN 5 MG TABLET PO PRN (20:23)
[2024-01-23] MEDS: ATORVASTATIN 20 MG TAB PO SCH (20:23)
[2024-01-24] VITALS (25 sets, daily range): BP systolic 132–158; BP diastolic 64–105; PULSE 58–92; RESP 12–20; TEMP 97–99.3; O2SAT 94–100
[2024-01-24 05:11] LABS: BASOPHILS % 0.7 % (0.0-1.0); EOSINOPHILS # (AUTO) 0.1 (0.0-0.4); HEMATOCRIT 40.3 % (38.2-49.6); HEMOGLOBIN 14.4 g/dL (14.0-18.0); LYMPHOCYTES % 33.1 % (18.0-39.1); MEAN CORPUSCULAR HEMOGLOBIN 32.7 pg (28-32); MEAN CORPUSCULAR HGB CONC 35.7 g/dL (31-35); MEAN CORPUSCULAR VOLUME 91.6 fL (81-99); MONOCYTES # (AUTO) 0.4 (0.2-0.8); MONOCYTES % 7.2 % (4.4-11.3); NEUTROPHILS # (AUTO) 3.5 (2.1-6.9); NEUTROPHILS % 56.8 % (38.7-80.0); PLATELET COUNT 177 x10e3/uL (140-360); RED CELL DISTRIBUTION WIDTH 11.9 % (11.7-14.4); WHITE BLOOD COUNT 6.13 x10e3/uL (4.8-10.8)
[2024-01-24 05:49] LABS: ALANINE AMINOTRANSFERASE 12 IU/L (0-55); ALBUMIN 3.3 g/dL (3.5-5.0); ALBUMIN/GLOBULIN RATIO 1.3 (0.8-2.0); ALKALINE PHOSPHATASE 63 IU/L (40-150); ANION GAP 11.4 mmol/L (8-16); BILIRUBIN,TOTAL 0.5 mg/dL (0.2-1.2); BLOOD UREA NITROGEN 11 mg/dL (7-26); BUN/CREATININE RATIO 10 (6-25); CALCIUM 8.3 mg/dL (8.4-10.2); CARBON DIOXIDE 25 mmol/L (22-29); CHLORIDE 101 mmol/L (98-107); CHOL/HDL RATIO 5.1 (3.9-4.7); CHOLESTEROL 147 MD/DL (0-199); CREATININE, SERUM 1.12 mg/dL (0.72-1.25); EST GLOMERULAR FILTRATION RATE 79 ML/MIN (>=60); GLUCOSE 194 mg/dL (74-118); HDL CHOLESTEROL 29 MG/DL (40-60); SODIUM 134 mmol/L (136-145); TOTAL PROTEIN 5.9 g/dL (6.5-8.1); TRIGLYCERIDES 420 MG/DL (0-149)
[2024-01-24 05:50] LABS: POTASSIUM 3.4 mmol/L (3.5-5.1)
[2024-01-24 05:59] LABS: THYROID STIMULATING HORMONE 2.253 uIU/mL (0.350-4.940)
[2024-01-24] MEDS: PANTOPRAZOLE SOD 40 MG TABEC PO SCH (07:30)
[2024-01-24] MEDS: BUPROPION HCL 150 MG TABCR PO SCH (09:00)
[2024-01-24] MEDS: HEPARIN SOD (PORCINE) 1000 UNIT/ML 30ML ONE (14:32)
[2024-01-24] MEDS: HEPARIN SOD/SOD CHLORIDE 2,000 ML ONE (14:32)
[2024-01-24] MEDS: NITROGLYCERIN/D5W 200 MCG/ML 250 ML ONE (14:32)
[2024-01-24] MEDS: LIDOCAINE HCL 2% LOCAL 20 ML VIAL ONE (14:33)
[2024-01-24] MEDS: MIDAZOLAM HCL 2 MG/2 ML VIAL ONE ×2 (14:33→14:34)
[2024-01-24] MEDS: SODIUM CHLORIDE 0.9% 1000ML 1,000 ML ONE (14:33)
[2024-01-24] MEDS: VERAPAMIL HCL 2.5 MG/ML 2 ML VIAL ONE (14:33)
[2024-01-24] MEDS: IOPAMIDOL 370 MG/ML 100 ML INFUS..BTL INJ ONE (14:33)
[2024-01-24] MEDS: FENTANYL CITRATE/PF 100MCG/2 ML INJ ONE (14:34)
[2024-01-24] MEDS: CLOPIDOGREL BISULFATE 75 MG TAB ONE (14:34)
[2024-01-24] MEDS: BIVALRIUDIN 250 MG/VIAL VIAL IV ONE (14:34)
[2024-01-24] MEDS: ACETAMINOPHEN 325 MG TAB PO PRN (16:05)
[2024-01-25] VITALS: BP 156/108; PULSE 88; RESP 16; TEMP 98.6; O2SAT 98
[2024-01-25] MEDS: METOCLOPRAMIDE HCL 10 MG/2ML VIAL IV ONE (00:28)
[2024-01-25 05:06] LABS: BASOPHILS % 0.6 % (0.0-1.0); EOSINOPHILS # (AUTO) 0.1 (0.0-0.4); EOSINOPHILS % 2.1 % (0.0-6.0); HEMATOCRIT 39.2 % (38.2-49.6); HEMOGLOBIN 14.5 g/dL (14.0-18.0); LYMPHOCYTES # (AUTO) 1.4 (1.0-3.2); LYMPHOCYTES % 27.1 % (18.0-39.1); MEAN CORPUSCULAR HEMOGLOBIN 32.4 pg (28-32); MEAN CORPUSCULAR VOLUME 87.5 fL (81-99); MONOCYTES # (AUTO) 0.4 (0.2-0.8); MONOCYTES % 7.9 % (4.4-11.3); NEUTROPHILS # (AUTO) 3.2 (2.1-6.9); NEUTROPHILS % 62.1 % (38.7-80.0); PLATELET COUNT 179 x10e3/uL (140-360); RED BLOOD COUNT 4.48 x10e6/uL (4.3-5.7); RED CELL DISTRIBUTION WIDTH 11.9 % (11.7-14.4); WHITE BLOOD COUNT 5.16 x10e3/uL (4.8-10.8)
[2024-01-25 05:24] LABS: ANION GAP 11.6 mmol/L (8-16); CALCIUM 8.3 mg/dL (8.4-10.2); CREATININE, SERUM 0.86 mg/dL (0.72-1.25); POTASSIUM 3.6 mmol/L (3.5-5.1)
[2024-01-25 05:36] VITALS: BP 116/82; PULSE 80; RESP 18; TEMP 97.3; O2SAT 100
[2024-01-25 07:40] VITALS: PULSE 72; RESP 18; O2SAT 96
[2024-01-25 07:50] VITALS: BP 136/93; PULSE 82; RESP 17; TEMP 97.7; O2SAT 99
[2024-01-25 09:29] VITALS: BP 136/93; PULSE 82; RESP 17; TEMP 97.7; O2SAT 99
[2024-01-25 11:54] VITALS: BP 134/94; PULSE 90; RESP 18; TEMP 98.3; O2SAT 99
[2024-01-25] MEDS ORDERED: MAG PO (14:08)
[2024-01-25] MEDS ORDERED: LISPRO (14:08)
[2024-01-25] MEDS ORDERED: SODIUM PO (14:08)
[2024-01-25] MEDS ORDERED: SPIRONOLACTONE25 MG PO (14:08)
[2024-01-25] MEDS ORDERED: PIOGLITAZONE15 MG PO (14:08)
[2024-01-25] MEDS ORDERED: METOPROLOL SUCC50 MG PO (14:08)
[2024-01-25] MEDS ORDERED: POTASSIUM PO (14:08)
[2024-01-25] MEDS ORDERED: MOUNJARO5 MG/0.5 M SQ (14:08)
[2024-01-25] MEDS ORDERED: ASPIRIN81 MG PO (14:08)
[2024-01-25] MEDS ORDERED: LIPITOR20 MG PO (15:11)
[2024-01-25] MEDS ORDERED: ASPIRIN CHEW81 MG PO (15:11)
[2024-01-25] MEDS ORDERED: COREG6.25 MG PO (15:12)
[2024-01-25] MEDS ORDERED: ATORVASTATIN 40 MG TAB PO SCH (21:00)
[2024-01-26] MEDS ORDERED: ASPIRIN 81 MG ENTERIC COATED PO SCH (09:00)
== END 2024-01-25 16:40 | disposition home or self-care (01) | DRG 321 ==
LOC: ER 19:47 → ERHOLD 21:15 → MED/SURG 21:52 → OBSVTOIN 01-24 09:45
PROVIDERS: ADMIT Internal Medicine; ATTEND Internal Medicine
PROC: 027034Z Dilation of Coronary Artery, One Artery with Drug-eluting Intraluminal Device, Percutaneous Approach (ICD-10-PCS; principal; 2024-01-24)
PROC: 4A023N7 Measurement of Cardiac Sampling and Pressure, Left Heart, Percutaneous Approach (ICD-10-PCS; 2024-01-24)
PROC: B2111ZZ Fluoroscopy of Multiple Coronary Arteries using Low Osmolar Contrast (ICD-10-PCS; 2024-01-24)
PROC: B2151ZZ Fluoroscopy of Left Heart using Low Osmolar Contrast (ICD-10-PCS; 2024-01-24)
DX: I25.110 Atherosclerotic heart disease of native coronary artery with unstable angina pectoris (principal); I25.42 Coronary artery dissection; L03.116 Cellulitis of left lower limb; T82.897A Other specified complication of cardiac prosthetic devices, implants and grafts, initial encounter; I25.2 Old myocardial infarction; Z95.5 Presence of coronary angioplasty implant and graft; E11.51 Type 2 diabetes mellitus with diabetic peripheral angiopathy without gangrene; I70.202 Unspecified atherosclerosis of native arteries of extremities, left leg; I70.201 Unspecified atherosclerosis of native arteries of extremities, right leg; Z79.4 Long term (current) use of insulin; Z79.84 Long term (current) use of oral hypoglycemic drugs; K21.9 Gastro-esophageal reflux disease without esophagitis; R00.0 Tachycardia, unspecified; E78.5 Hyperlipidemia, unspecified; F32.A Depression, unspecified; Y83.8 Other surgical procedures as the cause of abnormal reaction of the patient, or of later complication, without mention of misadventure at the time of the procedure; Y92.009 Unspecified place in unspecified non-institutional (private) residence as the place of occurrence of the external cause; Z79.899 Other long term (current) drug therapy; Z79.02 Long term (current) use of antithrombotics/antiplatelets; Z79.82 Long term (current) use of aspirin
CPT/HCPCS: 36415; 71045; 76937; 80048; 80053; 80061; 82550; 82948; 83036; 84100; 84443; 84484; 85025; 92928; 93005; 93306; 93458; 93925; 94799; 96372; 99152; 99153; 99252; 99284; C1725; C1769; C1874; C1887; G0378; J0583; J1644; J1650; J2003; J2250; J2270; J2405; J7030; Q9967